=== PATIENT | female | born 1990 ===

== ENCOUNTER 2016-07-18 09:13 | Emergency (ER) | payer MEDICAID, OTHER ==
[2016-07-18 09:17] VITALS: TEMP 97; O2SAT 99; BMI 31.1
[2016-07-18] MEDS ORDERED: Oxycodone/Acetaminophen 5/325 mg Tab PO STA (09:39)
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
[2016-07-18] MEDS ORDERED: Oxycodone/Acetaminophen 5/325 mg Tab ONE (09:43)
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
[2016-07-18 12:18] VITALS: BP 130/90; PULSE 90; RESP 18
== END 2016-07-18 11:25 | disposition home or self-care (01) ==
LOC: H.ER 09:13
DX: S06.0X0A Concussion without loss of consciousness, initial encounter (principal); M54.2 Cervicalgia; M62.838 Other muscle spasm; V43.52XA Car driver injured in collision with other type car in traffic accident, initial encounter; Y92.410 Unspecified street and highway as the place of occurrence of the external cause; Z88.0 Allergy status to penicillin

== ENCOUNTER 2016-10-15 15:37 | Emergency (ER) | payer OTHER ==
[2016-10-15 15:38] VITALS: BMI 31.1
[2016-10-15 15:44] VITALS: BP 128/71; RESP 18; O2SAT 99
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
[2016-10-15 18:48] VITALS: PULSE 89; TEMP 99
== END 2016-10-15 18:47 | disposition home or self-care (01) ==
LOC: H.ER 15:37
DX: S09.90XA Unspecified injury of head, initial encounter (principal); S16.1XXA Strain of muscle, fascia and tendon at neck level, initial encounter; Z88.0 Allergy status to penicillin; V89.2XXA Person injured in unspecified motor-vehicle accident, traffic, initial encounter

== ENCOUNTER 2016-10-24 20:22 | Emergency (ER) | payer OTHER ==
[2016-10-24 20:22] VITALS: BMI 31.1
[2016-10-24 20:33] VITALS: BP 147/95; PULSE 88; RESP 16; TEMP 98.6; O2SAT 100
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
== END 2016-10-24 21:55 | disposition home or self-care (01) ==
LOC: H.ER 20:22
DX: M25.511 Pain in right shoulder (principal); V43.52XA Car driver injured in collision with other type car in traffic accident, initial encounter; Y92.410 Unspecified street and highway as the place of occurrence of the external cause; Z88.0 Allergy status to penicillin

== ENCOUNTER 2017-06-30 10:17 | Emergency (ER) | payer MEDICAID, OTHER ==
[2017-06-30 10:20] VITALS: BMI 32.1
[2017-06-30 10:22] VITALS: TEMP 98.3
[2017-06-30 11:40] LABS: SQUAMOUS EPITHIAL 2 /hpf (0-5); URINE BACTERIA RARE (<OCC); URINE BILIRUBIN NEGATIVE (NEGATIVE); URINE BLOOD MODERATE (NEGATIVE); URINE CLARITY CLOUDY (Clear); URINE COLOR YELLOW (YELLOW); URINE GLUCOSE (UA) NEG (Normal); URINE LEUKOCYTE ESTERASE MOD Leu/uL (Negative); URINE PROTEIN 100 mg/dL (NEGATIVE); URINE UROBILINOGEN 0.2-1.0 mg/dL (0.2-1.0)
--- NOTE | 2017-06-30 11:47 | ED PDOC ---
HPI: Female Pain Time Seen by Provider: 06/30/17 10:48 Chief Complaint (Nursing): Female Genitourinary Chief Complaint (Provider): Urinary Tract Infection History Per: Patient History/Exam Limitations: no limitations Onset/Duration Of Symptoms: Days (3) Severity: Mild Quality Of Discomfort: Pressure. denies: Burning Associated Symptoms: Urinary Symptoms. denies: Fever, Chills, Nausea, Vomiting Alleviating Factors: None Abnormal Vaginal Bleeding: No Last Menstral Period: 06/26/2017 Past Medical History Reviewed: Historical Data Vital Signs: Last Vital Signs Temp 98.3 F 06/30/17 10:21 Pulse 92 H 06/30/17 10:21 Resp 20 06/30/17 10:21 BP 115/69 06/30/17 10:21 Pulse Ox 99 06/30/17 10:21 - Medical History PMH: Gastritis Denies: HIV, Chronic Kidney Disease - Surgical History Surgical History: Appendectomy - Family History Family History: States: Unknown Family Hx - Home Medications Home Medications: Ambulatory Orders Medication Instructions Recorded Naproxen [Naprosyn] 500 mg PO Q12H #20 tab 12/02/14 Ciprofloxacin HCl [Cipro] 500 mg PO BID #14 tablet 01/01/16 Ibuprofen [Motrin Tab] 800 mg PO Q8 PRN #20 tab 01/01/16 Cyclobenzaprine [Cyclobenzaprine 10 mg PO Q8 PRN #9 tab 10/15/16 HCl] Naproxen [Naprosyn] 500 mg PO BID PRN #14 tablet 10/15/16 Ibuprofen [Motrin] 400 mg PO Q6 #30 tab 10/24/16 Phenazopyridine HCl [Pyridium] 200 mg PO TID #12 tablet 06/30/17 Sulfamethoxazole/Trimethoprim 1 tab PO BID #20 tab 06/30/17 [Bactrim DS 800 mg-160 mg] - Allergies Allergies/Adverse Reactions: Allergies Allergy/AdvReac Type Severity Reaction Status Date / Time amoxicillin Allergy RASH Verified 10/24/16 20:29 Penicillins Allergy RASH Verified 10/24/16 20:29 Review of Systems Constitutional: Negative for: Fever, Chills Gastrointestinal: Negative for: Nausea, Vomiting Genitourinary Female: Positive for: Pelvic Pain, Other (bladder pressure). Negative for: Vaginal Discharge, Vaginal Bleeding Skin: Negative for: Rash, Lesions Physical Exam - Reviewed Nursing Documentation Reviewed: Yes Vital Signs Reviewed: Yes - Physical Exam Appears: Positive for: Well, Non-toxic, No Acute Distress. Negative for: Uncomfortable Head Exam: Positive for: ATRAUMATIC, NORMAL INSPECTION, NORMOCEPHALIC Skin: Positive for: Normal Color. Negative for: Diaphoresis Neck: Positive for: Normal, Painless ROM, Supple. Negative for: Decreased ROM Cardiovascular/Chest: Positive for: Regular Rate, Rhythm. Negative for: Edema, Gallop, Murmur, Bradycardia, Tachycardia, Friction Rub Respiratory: Positive for: Normal Breath Sounds. Negative for: Accessory Muscle Use, Crackles, Rales, Rhonchi, Stridor, Wheezing, Respiratory Distress Pulses-Carotid (L): 2+ Pulses-Carotid (R): 2+ Pulses-Radial (L): 2+ Pulses-Radial (R): 2+ Gastrointestinal/Abdominal: Positive for: Bowel Sounds, Soft, Tenderness ( suprapubic tenderness) - ECG O2 Sat by Pulse Oximetry: 99 Medical Decision Making Medical Decision Making: r/o UTI over Cystitis (same tx plan) UA Culture UA: RBC (+) WBC (+) Bacteria (+) will treat with pyridium and bactrim DS Disposition - Clinical Impression Clinical Impression: Cystitis, Urinary tract infection - Patient ED Disposition Is Patient to be Admitted: No Doctor Will See Patient In The: Office Counseled Patient/Family Regarding: Studies Performed, Diagnosis, Need For Followup, Rx Given - Disposition Referrals: [facility] [Outside] Disposition: Routine/Home Disposition Time: 11:51 Condition: GOOD Prescriptions: Phenazopyridine HCl [Pyridium] 200 mg PO TID #12 tablet Sulfamethoxazole/Trimethoprim [Bactrim DS 800 mg-160 mg] 1 tab PO BID #20 tab Instructions: Urinary Tract Infection, Adult (DC), Acute Cystitis (DC)
[2017-06-30 12:17] VITALS: BP 112/68; PULSE 88; RESP 14; O2SAT 98
== END 2017-06-30 12:15 | disposition home or self-care (01) ==
LOC: H.ER 10:17
DX: N39.0 Urinary tract infection, site not specified (principal); N30.90 Cystitis, unspecified without hematuria; Z88.0 Allergy status to penicillin

== ENCOUNTER 2018-06-11 09:30 | Emergency (ER) | payer MEDICAID ==
[2018-06-11 09:39] VITALS: TEMP 98.8; O2SAT 100; BMI 32.0
--- NOTE | 2018-06-11 11:57 | ED PDOC ---
HPI: Abdomen Time Seen by Provider: 06/11/18 10:35 Chief Complaint (Nursing): Abdominal Pain Chief Complaint (Provider): RIGHT UPPER BACK PAIN/RIGHTRIB CAGE PAIN History Per: Patient History/Exam Limitations: no limitations Onset/Duration Of Symptoms: Days Outside of [place] travel?: No Current Symptoms Are (Timing): Still Present Severity: None Pain Scale Rating Of: 6 Location Of Pain/Discomfort: Diffuse Quality Of Discomfort: Sharp Associated Symptoms: Back Pain. denies: Fever, Chills, Nausea, Vomiting, Diarrhea Exacerbating Factors: Movement, Cough, Deep Breaths Alleviating Factors: None Additional History Per: Patient Additional Complaint(s): 27 Y/O FEMALE WITH NO MEDICAL HX, PRESENTS TO THE ED WITH 2 DAY HX OF RIGHT UPPER BACK PAIN RAD TO RIGHT CHEST AND RIGHT LOWER BACK PAIN. SHE STATES IT STARTED AFTER DOING CARDIO AT THE GYM Friday. YESTERDAY SHE REPORTS SHE WOKE UP WITH "STIFF" NECK, BUT TODAY NECK PAIN HAS IMPROVED. PATIENT IS CONCERNED BECAUSE SHE REPORTS SHE IS UNABLE TO TAKE A DEEP BREATH WITHOUT PAIN AND IN ATTEMPT TO GET UP FROM BED PAIN INCREASES. PATIENT DENIES WORKING OUT YESTERDAY AND HAS BEEN TAKING OTC MEDS WITH MINIMAL RELIEF. PT DENIES FEVER, SOB, COUGH, LEG PAIN, NAUSEA, VOMITING, DIZZINESS, URINARY SYMPTOMS. PATIENT STATES SHE SMOKES HOOKAH OCCASIONALLY. Abnormal Vaginal Bleeding: No Past Medical History Vital Signs: Last Vital Signs Temp 98.8 F 06/11/18 09:39 Pulse 85 06/11/18 09:39 Resp 18 06/11/18 09:39 BP 136/75 06/11/18 09:39 Pulse Ox 100 06/11/18 09:39 KAROL Report Viewed: Yes - Medical History PMH: No Chronic Diseases, Gastritis Denies: HIV, Chronic Kidney Disease - Surgical History Surgical History: Appendectomy - Family History Family History: States: Unknown Family Hx - Social History Alcohol: None Drugs: Denies - Immunization History Hx Tetanus Toxoid Vaccination: No Hx Influenza Vaccination: No Hx Pneumococcal Vaccination: No - Home Medications Home Medications: Ambulatory Orders Medication Instructions Recorded Naproxen [Naprosyn] 500 mg PO Q12H #20 tab 12/02/14 Ciprofloxacin HCl [Cipro] 500 mg PO BID #14 tablet 01/01/16 Ibuprofen [Motrin Tab] 800 mg PO Q8 PRN #20 tab 01/01/16 Cyclobenzaprine [Cyclobenzaprine 10 mg PO Q8 PRN #9 tab 10/15/16 HCl] Naproxen [Naprosyn] 500 mg PO BID PRN #14 tablet 10/15/16 Ibuprofen [Motrin] 400 mg PO Q6 #30 tab 10/24/16 Phenazopyridine HCl [Pyridium] 200 mg PO TID #12 tablet 06/30/17 Sulfamethoxazole/Trimethoprim 1 tab PO BID #20 tab 06/30/17 [Bactrim DS 800 mg-160 mg] Naproxen [Naprosyn Tab] 500 mg PO Q12 PRN #30 tab 06/11/18 - Allergies Allergies/Adverse Reactions: Allergies Allergy/AdvReac Type Severity Reaction Status Date / Time amoxicillin Allergy RASH Verified 10/24/16 20:29 Penicillins Allergy RASH Verified 10/24/16 20:29 Review of Systems ROS Statement: Except As Marked, All Systems Reviewed And Found Negative Constitutional: Negative for: Weight loss Eyes: Negative for: Pain ENT: Negative for: Mouth Swelling, Throat Swelling Cardiovascular: Positive for: Chest Pain (SHARP PAIN WITH DEEP INSPIRATION. ). Negative for: Palpitations, Orthopnea, Light Headedness Respiratory: Positive for: Pleuritic Pain. Negative for: Cough, Shortness of Breath, SOB with Exertion, Wheezing Gastrointestinal: Negative for: Nausea, Vomiting, Abdominal Pain, Diarrhea Genitourinary Female: Negative for: Dysuria Musculoskeletal: Positive for: Neck Pain (WITH MOVEMENT AFTER OTC MEDS PER PT), Shoulder Pain Skin: Negative for: Rash Neurological: Negative for: Weakness Physical Exam - Reviewed Nursing Documentation Reviewed: Yes Vital Signs Reviewed: Yes - Physical Exam Appears: Positive for: Well, Non-toxic, No Acute Distress Head Exam: Positive for: ATRAUMATIC, NORMAL INSPECTION, NORMOCEPHALIC Skin: Positive for: Normal Color, Warm, DRY Eye Exam: Positive for: EOMI, Normal appearance, PERRL ENT: Positive for: Normal ENT Inspection Neck: Positive for: Normal, Painless ROM Cardiovascular/Chest: Positive for: Regular Rate, Rhythm. Negative for: Chest Non Tender (POINT TENDERNESS OF RIB CAGE, NEG FOR BRUISING SIGNS OF INJURY), Murmur Respiratory: Positive for: CNT, Normal Breath Sounds Pulses-Radial (L): 2+ Pulses-Radial (R): 2+ Gastrointestinal/Abdominal: Positive for: Normal Exam, Soft Back: Positive for: Normal Inspection. Negative for: L CVA Tenderness, R CVA Tenderness Extremity: Positive for: Normal ROM. Negative for: Tenderness, Calf Tenderness, Swelling Neurological/Psych: Positive for: Awake, Alert, Normal Tone, Age Appropriate, Symmetric/Intact Strength, Oriented - Laboratory Results Urine POC: Negative Urine dip results: Positive for: Leukocyte Esterase (SMALL). Negative for: Blood, Nitrate, Ketones, Glucose, Bilirubin, Protein - ECG O2 Sat by Pulse Oximetry: 100 - Progress ED Course And Treament: UPREG UDIP TORADOL IM 1145: PT RE-EVALUATED AT THIS TIME, PATIENTS PAIN HAS IMPROVED. UPREG NEG, URINE DIP NEG FOR UTI, CLINICAL FINDINGS DISCUSSED WITH PATIENT, IMPRESSION COSTOCHRONDITIS ACTIVITY TOLERATED RX GIVEN FOR NAPROXEN PRN PT IS SABLE FOR D/C, PT STATES UNDERSTANDING COURSE OF TREATMENT AND AGREES GIVEN RETURN TO ED PRECAUTIONS. Disposition - Clinical Impression Clinical Impression: Costochondral chest pain - Patient ED Disposition Is Patient to be Admitted: No Counseled Patient/Family Regarding: Diagnosis, Rx Given - Disposition Disposition: Routine/Home Disposition Time: 11:55 Condition: IMPROVED Prescriptions: Naproxen [Naprosyn Tab] 500 mg PO Q12 PRN #30 tab PRN Reason: Pain, Moderate (4-7) Instructions: Chest Pain That Is Not Caused by the Heart (DC) Print Language: CHINESE - POA Present On Arrival: None
[2018-06-11 12:55] VITALS: BP 130/60; PULSE 76; RESP 17
== END 2018-06-11 12:15 | disposition home or self-care (01) ==
LOC: H.ER 09:30
DX: M94.0 Chondrocostal junction syndrome [Tietze] (principal); Z88.0 Allergy status to penicillin
CPT/HCPCS: 81025; 96372; 99283; J1885